=== PATIENT | female | born 1970 | race Caucasian/White ===

== ENCOUNTER 2016-11-21 20:37 | Emergency (ER) | payer SELFPAY ==
[~2016-11-21] VITALS: Ht 175.3 cm; Wt 119.4 kg
[~2016-11-21 20:37] MED LIST: ZITHROMAX Z-PAK1 TAB PO
[2016-11-21 21:26] LABS: HEMATOCRIT 38.5 % (37.0-47.0); HEMOGLOBIN 11.8 g/dl (12.0-16.0); IMMATURE GRANULOCYTES 0.4 % (0.0-1.0); MEAN CELL VOLUME 79.9 fL CALC (80.0-100.0); MEAN CORPUSCULAR HGB 24.5 pG CALC (26.0-32.0); MEAN CORPUSCULAR HGB CONC 30.6 g/L CALC (32.0-36.0); NEUT# 9.06 thou/uL (2.00-7.15); RED BLOOD COUNT 4.82 mill/uL (4.20-5.60); RED CELL DISTRI WIDTH 17.1 % (11.5-15.5)
[2016-11-21 21:38] LABS: ALKALINE PHOSPHATASE 92 u/l (38-126); ANION GAP 15 (6-22 (CALC)); BILIRUBIN, TOTAL 0.3 mg/dL (0.0-1.4); BUN 9 mg/dL (7-17); BUN/CREATININE RATIO 11 (12-20 (CALC)); CALCIUM 9.5 mg/dL (8.4-10.2); CARBON DIOXIDE 25 mmol/l (22-30); CHLORIDE 106 mmol/l (95-108); CREATININE 0.8 mg/dL (0.5-1.0); GFR > 60 ML/MIN (>=60 (CALC)); GFR FOR AFR.AMER. > 60 ML/MIN (>=60 (CALC)); GLUCOSE 114 mg/dL (65-105); POTASSIUM 4.1 mmol/l (3.5-5.1); SGOT/AST 17 u/l (14-36); SGPT/ALT 32 u/l (9-52); SODIUM 141 mmol/l (137-146); TOTAL PROTEIN 6.9 g/dL (6.3-8.2)
[2016-11-21] MEDS ORDERED: MOTRIN800 MG PO (21:58)
[2016-11-21 22:24] VITALS: BP 124/55
== END 2016-11-21 22:24 | disposition home or self-care (01) | DRG 556 ==
LOC: ED 20:37
PROVIDERS: Emergency Medicine
DX: M79.652 Pain in left thigh (principal); M25.562 Pain in left knee; M79.672 Pain in left foot

== ENCOUNTER 2017-07-19 14:15 | Emergency (ER) | payer SELFPAY ==
[~2017-07-19] VITALS: Ht 175.3 cm; Wt 120.4 kg
[~2017-07-19 14:15] MED LIST changes: +MOTRIN800 MG PO
[2017-07-19 15:06] LABS: URINE BILIRUBIN - DIPSTICK NEGATIVE (NEGATIVE); URINE BLOOD DIPSTICK MODERATE (NEGATIVE); URINE COLOR YELLOW; URINE GLUCOSE - DIPSTICK NEGATIVE (NEGATIVE); URINE KETONE TRACE mg/dL (NEGATIVE); URINE PH 6.5 (4.5-8.0); URINE PROTEIN - DIPSTICK NEGATIVE (NEG-TRACE); URINE UROBILINOGEN - DIPSTICK 0.2 E.U./dL (0.2)
[2017-07-19 15:10] LABS: URINE CLARITY CLOUDY; URINE LEUK ESTERASE SMALL (NEGATIVE); URINE NITRITE - DIPSTICK POSITIVE (Negative)
[2017-07-19 15:11] LABS: URINE EPITHELIAL CELLS MODERATE EPI/hpf (0-FEW)
[2017-07-19 15:12] LABS: URINE BACTERIA MANY hpf; URINE MUCUS MODERATE hpf (NONE-FEW)
[2017-07-19] MEDS ORDERED: TESSALON PER100 MG PO (15:20)
[2017-07-19] MEDS ORDERED: BACTRIM DS1 TAB PO (15:20)
[2017-07-19] MEDS ORDERED: MOTRIN800 MG PO (15:20)
[2017-07-19 15:30] VITALS: BP 149/74
== END 2017-07-19 15:30 | disposition home or self-care (01) | DRG 202 ==
LOC: ED 14:15
PROVIDERS: Emergency Medicine
DX: J41.0 Simple chronic bronchitis (principal); N39.0 Urinary tract infection, site not specified; B96.1 Klebsiella pneumoniae [K. pneumoniae] as the cause of diseases classified elsewhere; S90.111A Contusion of right great toe without damage to nail, initial encounter; F17.210 Nicotine dependence, cigarettes, uncomplicated; W20.8XXA Other cause of strike by thrown, projected or falling object, initial encounter

== ENCOUNTER 2018-06-08 07:28 | Emergency (ER) | payer SELFPAY ==
[~2018-06-08] VITALS: Ht 175.3 cm; Wt 127.2 kg
[~2018-06-08 07:28] MED LIST changes: +BACTRIM DS1 TAB PO; +TESSALON PER100 MG PO
[2018-06-08 07:41] VITALS: BP 144/84
[2018-06-08] MEDS ORDERED: DOXYCYC MONO100 M2 PO (07:47)
== END 2018-06-08 08:10 | disposition home or self-care (01) | DRG 153 ==
LOC: ED 07:28
DX: J06.9 Acute upper respiratory infection, unspecified (principal); L02.11 Cutaneous abscess of neck

== ENCOUNTER 2018-06-25 12:00 | Emergency (ER) | payer SELFPAY ==
[~2018-06-25] VITALS: Ht 175.3 cm; Wt 125.0 kg
[~2018-06-25 12:00] MED LIST changes: +DOXYCYC MONO100 M2 PO
[2018-06-25] MEDS ORDERED: FLEXERIL PO (13:15)
[2018-06-25] MEDS ORDERED: TORADOL PO (13:15)
[2018-06-25] MEDS ORDERED: MEDDOSEPAK PO (13:15)
[2018-06-25 13:18] VITALS: BP 155/74
== END 2018-06-25 13:18 | disposition home or self-care (01) | DRG 563 ==
LOC: ED 12:00
DX: S39.012A Strain of muscle, fascia and tendon of lower back, initial encounter (principal); M54.5 Low back pain; M79.604 Pain in right leg

== ENCOUNTER 2018-08-25 01:55 | Emergency (ER) | payer SELFPAY ==
[~2018-08-25] VITALS: Ht 175.3 cm; Wt 118.0 kg
[~2018-08-25 01:55] MED LIST changes: +FLEXERIL PO; +MEDDOSEPAK PO; +TORADOL PO
[2018-08-25 02:43] LABS: URINE BLOOD DIPSTICK LARGE (NEGATIVE); URINE COLOR YELLOW; URINE GLUCOSE - DIPSTICK NEGATIVE (NEGATIVE); URINE KETONE TRACE mg/dL (NEGATIVE); URINE LEUK ESTERASE MODERATE (Negative); URINE NITRITE - DIPSTICK NEGATIVE (Negative); URINE PH 5.5 (4.5-8.0); URINE PROTEIN - DIPSTICK 100 mg/dL (NEG-TRACE); URINE SPECIFIC GRAVITY >=1.030; URINE UROBILINOGEN - DIPSTICK 0.2 E.U./dL (0.2)
[2018-08-25 02:51] LABS: URINE BACTERIA FEW hpf; URINE BILIRUBIN - DIPSTICK NEGATIVE (NEGATIVE); URINE CALCIUM OXALATE CRYSTALS FEW lpf; URINE CLARITY CLOUDY; URINE MUCUS FEW hpf (NONE-FEW); URINE SQUAMOUS EPITHELIAL CELL FEW EPI/hpf (0-FEW)
[2018-08-25 03:00] VITALS: BP 153/82
[2018-08-25] MEDS ORDERED: CIPROFLOXACN500 MG PO (03:03)
[2018-08-25] MEDS ORDERED: PYRIDIUM200 MG PO (03:03)
== END 2018-08-25 03:00 | disposition home or self-care (01) | DRG 690 ==
LOC: ED 01:55
PROVIDERS: Emergency Medicine
DX: N39.0 Urinary tract infection, site not specified (principal); R30.0 Dysuria

== ENCOUNTER 2018-10-25 12:14 | Emergency (ER) | payer SELFPAY ==
[~2018-10-25] VITALS: Ht 175.3 cm; Wt 118.0 kg
[~2018-10-25 12:14] MED LIST changes: +CIPROFLOXACN500 MG PO; +PYRIDIUM200 MG PO
[2018-10-25] MEDS ORDERED: ULTRAM50 M1 PO (14:15)
[2018-10-25] MEDS ORDERED: AMOXICILLIN500 MG PO (14:15)
[2018-10-25 14:25] VITALS: BP 138/77
== END 2018-10-25 14:30 | disposition home or self-care (01) | DRG 156 ==
LOC: ED 12:14
PROC: 09Q1XZZ Repair Left External Ear, External Approach (ICD-10-PCS; principal; 2018-10-25)
DX: S01.312A Laceration without foreign body of left ear, initial encounter (principal); F17.200 Nicotine dependence, unspecified, uncomplicated; Y00.XXXA Assault by blunt object, initial encounter; Y92.009 Unspecified place in unspecified non-institutional (private) residence as the place of occurrence of the external cause

== ENCOUNTER 2019-02-08 12:11 | Emergency (ER) | payer SELFPAY ==
[~2019-02-08] VITALS: Ht 175.3 cm; Wt 123.8 kg
[~2019-02-08 12:11] MED LIST changes: +AMOXICILLIN500 MG PO; +ULTRAM50 M1 PO
[2019-02-08] MEDS ORDERED: MOTRIN400 MG PO (12:23)
[2019-02-08 12:47] LABS: URINE BILIRUBIN - DIPSTICK NEGATIVE (NEGATIVE); URINE BLOOD DIPSTICK NEGATIVE (NEGATIVE); URINE CLARITY CLEAR; URINE COLOR YELLOW; URINE GLUCOSE - DIPSTICK NEGATIVE (NEGATIVE); URINE KETONE 15 mg/dL (NEGATIVE); URINE LEUK ESTERASE NEGATIVE (Negative); URINE NITRITE - DIPSTICK NEGATIVE (Negative); URINE PROTEIN - DIPSTICK NEGATIVE (NEG-TRACE); URINE SPECIFIC GRAVITY 1.025
[2019-02-08 12:50] LABS: COCAINE NEGATIVE (NEGATIVE); METHADONE NEGATIVE (NEGATIVE); TETRAHYDROCANNABIONOL NEGATIVE (NEGATIVE); TRICYLIC ANTIDEPRESSANTS NEGATIVE (NEGATIVE)
[2019-02-08 12:51] LABS: BARBITURATES NEGATIVE (NEGATIVE); OXCYCODONE NEGATIVE (NEGATIVE)
[2019-02-08 13:45] VITALS: BP 176/102
== END 2019-02-08 13:50 | disposition home or self-care (01) | DRG 605 ==
LOC: ED 12:11
DX: S20.01XA Contusion of right breast, initial encounter (principal); S00.12XA Contusion of left eyelid and periocular area, initial encounter; R51 Headache; M25.522 Pain in left elbow; F17.210 Nicotine dependence, cigarettes, uncomplicated; Y04.8XXA Assault by other bodily force, initial encounter